=== PATIENT | female | born 1980 | race Hispanic/Latino ===

== ENCOUNTER → 2019-10-14 | Outpatient (CLI) | payer OTHER ==
--- NOTE | 2019-10-14 10:00 | US ---
EXAM DESCRIPTION: Breast,Left: Ultrasound. CLINICAL HISTORY: 39 yearsFemaleABNORMAL MAMMO. Focal asymmetry versus mass density upper outer quadrant anterior left breast. COMPARISON: Bilateral screening digital breast tomosynthesis on August 31. TECHNIQUE: Transcutaneous scanning of the upper outer quadrant anterior left breast utilizing osman-scale and Doppler modes. Scanning performed by the eyelet maker ; observation by Dr. Luna. FINDINGS: Mostly dense fibroglandular tissues and several clusters with minimal peripheral fatty replacement. At the 1:00 to 2:00 region, 4 cm from the nipple, fibroglandular tissues again noted. No dominant solid mass, no distinct cyst, no large calcifications. No overlying skin changes. IMPRESSION: Benign exam. Focal dense fibroglandular tissue in the region of interest. BIRAD CATEGORY: 2 BENIGN FINDINGS. RECOMMENDATIONS: FOLLOW UP: Return to routine digital bilateral mammographic screening, one year interval from August 2019. Written communication explaining the IMPRESSION and follow-up, will be mailed to the patient and referring health care provider. The FINDINGS and the FOLLOW-UP plan were reviewed in person with the patient after the examination. According to the [employer], yearly mammograms are recommended starting at age 40 and continuing as long as a woman is in good health. Any breast change noted on a breast self-exam should be reported promptly to the patient's healthcare provider. Breast MRI is recommended for women with an approximately 20-25% or greater lifetime risk of breast cancer, including women with a strong family history of breast or ovarian cancer and women who have been treated for Hodgkin's disease. A negative mammographic report should not delay tissue diagnosis in patients with significant clinical history or physical findings. Extremely dense breast tissue limits the sensitivity of digital mammography. Electronically signed by: Arnie Luna MD 10/14/2019 9:58 AM CDT
== END ==
LOC: MAMMO 08:32
PROVIDERS: ATTEND Family Medicine
DX: N64.89 Other specified disorders of breast (principal)